=== PATIENT | male | born 1975 | race Caucasian/White ===

== ENCOUNTER → 2024-04-28 12:47 | Outpatient (BNVA) | payer OTHER, SELFPAY | PROVIDERS: Family Provider Nurse Practitioner Family; PCP Nurse Practitioner Family; Visit Provider Surgery | DX: Z12.11 Encounter for screening for malignant neoplasm of colon (principal) | CPT/HCPCS: 99204 ==

== ENCOUNTER 2024-07-15 10:46 | Day surgery (SDC) | payer OTHER, SELFPAY ==
[2024-07-15] MEDS: sodium chloride 0.9% 500 ML 15 ML IV (11:01)
[2024-07-15 11:03] VITALS: BP 141/78; PULSE 78; RESP 16; TEMP 36.4; O2SAT 97; BMI 33.0
--- NOTE | 2024-07-15 11:19 | W.PM.OPSFHP ---
Same Day Surgery H&P Indication for Procedure/HPI DATE OF PROCEDURE: July 15, 2024 CHIEF COMPLAINT/INDICATIONFOR SURGICAL PROCEDURE: need for screening colonoscopy PREOP DIAGNOSIS: need for screening colonoscopy PLANNED PROCEDURE: Operation Date: 07/15/24 12:25 Proposed Procedures p Colonoscopy- 43724, G0121, Z12.11(Not Applicable) - Guerrero Eller MD Medications/Allergies* Home Medications Medication Instructions Recorded Confirmed Type diltiazem HCl 120 mg 120 mg PO DAILY 04/28/24 07/15/24 History capsule,extended release 24 hr Allergies/Adverse Reactions Allergy/AdvReac Type Severity Reaction Status Date / Time Penicillins Allergy Mild Unknown Verified 04/28/24 13:14 Current Medications: Generic Name Dose Route Start Last Admin Trade Name Freq PRN Reason Stop Dose Admin Sodium Chloride 500 mls @ 15 mls/hr 07/15/24 10:55 07/15/24 11:01 Sodium Chloride 0.9% IV 07/16/24 10:54 15 mls/hr .Q24H PRN Administration COLONOSCOPY FLUIDS Pertinent History/Comorbid Conditions* Social History Smoking and tobacco/nicotine status: heavy tobacco/nicotine user smokeless tobacco Smokeless tobacco user: chewing tobacco Alcohol intake: current Alcohol intake frequency: few times a week Substance/Drug Use: never Pertinent Exam Findings alert, oriented x 3, clear to auscultation bilaterally and regular rate & rhythm Recommendations Surgery/Procedure today Coding Level of Care Code Acute Code for Chg Fwd
--- NOTE | 2024-07-15 13:34 | ANES.PREANE2 ---
Pre-Anesthetic Assessment Height/Weight: Height 1.78 m Weight 104.326 kg Temp Pulse Resp BP Pulse Ox O2 Del Method 97.6 F 78 16 141/78 97 Room Air 07/15/24 11:03 07/15/24 11:03 07/15/24 11:03 07/15/24 11:03 07/15/24 11:03 07/15/24 11:03 Preop Diagnosis: need for screening colonoscopy Operation Date: 07/15/24 12:25 Proposed Procedures p Colonoscopy- 88380, G0121, Z12.11(Not Applicable) - Guerrero Eller MD Was Beta Mima taken within 24 hours: N/A Was Clonidine taken within 24 hours: N/A Last intake: Intake Last Liquid Date 07/14/24 Last Liquid Time 21:00 Last Solid Date 07/13/24 Last Solid Time 21:00 Social No alcohol and No tobacco Exam alert, oriented x 3, clear to auscultation bilaterally and regular rate & rhythm Airway Submandibular: within normal limits Cervical ROM: within normal limits Mallampati: Class II Dentition: full History/ROS No significant history except as noted and No significant complaints Pulmonary Sleep Apnea CV/HEM None reported None reported Hepatic None reported GI None reported Metabolic None reported Musc/skel None reported Neuropsych None reported Anesthetic Plan ASA status: 2 Anesthesia: Anesthesia Evaluation and MAC Risk of > 500 ml blood loss (7ml/kg in children): No Medications/Allergies Home Medications Medication Instructions Recorded Confirmed Last Taken Type diltiazem HCl 120 mg 120 mg PO DAILY 04/28/24 07/15/24 07/15/24 History capsule,extended release 24 hr ondansetron 8 mg disintegrating 8 mg PO Q8H PRN nausea and 04/28/24 07/15/24 07/14/24 Rx tablet vomiting #20 tabs Allergies Allergy/AdvReac Type Severity Reaction Status Date / Time Penicillins Allergy Mild Unknown Verified 04/28/24 13:14 Current Medications Generic Name Dose Route Start Last Admin Trade Name Freq PRN Reason Stop Dose Admin Sodium Chloride 500 mls @ 15 mls/hr 07/15/24 10:55 07/15/24 11:01 Sodium Chloride 0.9% IV 07/16/24 10:54 15 mls/hr .Q24H PRN Administration COLONOSCOPY FLUIDS PFSH Anesthesia Social History (Updated 04/28/24 @ 13:17 by Leilani Brown) Smoking and tobacco/nicotine status: heavy tobacco/nicotine user smokeless tobacco Smokeless tobacco user: chewing tobacco Alcohol intake: current Alcohol intake frequency: few times a week Substance/Drug Use: never Data Anesthesia Cardiac Studies: No Data to Display
[2024-07-15 14:08] VITALS: BP 102/59; PULSE 78; RESP 18; TEMP 36.1; O2SAT 98
[2024-07-15 14:25] VITALS: BP 111/57; PULSE 73; RESP 18; O2SAT 100
--- NOTE | 2024-07-15 15:07 | PC.NURSE ---
During the procedure, the Dr and staff thought we saw a polyp and the Dr requested a snare to remove the polyp. We then could not find the polyp again and had to waste the cold snare and the polyp trap
== END 2024-07-15 14:39 | disposition home or self-care (01) ==
PROVIDERS: PCP Family Medicine; Visit Provider Surgery
PROC: 0DJD8ZZ Inspection of Lower Intestinal Tract, Via Natural or Artificial Opening Endoscopic (ICD-10-PCS; CPT 45378; principal; 2024-07-15 12:25)
DX: Z12.11 Encounter for screening for malignant neoplasm of colon (principal); F17.220 Nicotine dependence, chewing tobacco, uncomplicated; Z79.899 Other long term (current) drug therapy
CPT/HCPCS: 45378; J2704; J7040